=== PATIENT | male | born 1970 | race African-American/Black ===

== ENCOUNTER 2021-12-21 12:28 | Emergency (ER) | payer OTHER ==
[~2021-12-21] VITALS: Ht 170.2 cm; Wt 107.0 kg
[2021-12-21 12:48] VITALS: BP 136/92
[2021-12-21] MEDS ORDERED: ACETAMINOPHEN 325MG TABLET PO NR (14:28)
[2021-12-21] MEDS ORDERED: ACET-2708 PO (16:28)
== END 2021-12-21 16:40 | disposition home or self-care (01) ==
LOC: ER 14:14
DX: M79.662 Pain in left lower leg (principal); R60.0 Localized edema; L81.9 Disorder of pigmentation, unspecified; Z86.73 Personal history of transient ischemic attack (TIA), and cerebral infarction without residual deficits; Z98.890 Other specified postprocedural states
CPT/HCPCS: 71045; 93971; 99284